=== PATIENT | male | born 1995 | race Caucasian/White ===

== ENCOUNTER 2022-02-16 06:11 | Emergency (ER) | payer MEDICAID ==
[2022-02-16] MEDS ORDERED: LIDOCAINE 1% INJ 10MG/ML (30 ML VIAL-PF) SQ ONE (06:15)
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
[2022-02-16 06:31] LABS: Glucose,Whole Blood 124 mg/dL (70-110)
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
[2022-02-16] MEDS ORDERED: LIDOCAINE/EPINEPHR/TETRACAINE 5 ML BOTTLE TOPICAL ONE (06:47)
[2022-02-16] MEDS ORDERED: TOPICAL SKIN ADHESIVE 1 EACH AMP TOPICAL ONE (07:31)
[2022-02-16] MEDS ORDERED: BACITRACIN OINT 1 EACH PACKET TOPICAL ONE (07:59)
[2022-02-16 08:20] VITALS: BP 147/81; PULSE 82; RESP 18; TEMP 98.6
== END 2022-02-16 08:20 | disposition home or self-care (01) ==
LOC: EC 06:11
DX: S01.81XA Laceration without foreign body of other part of head, initial encounter (principal); S91.311A Laceration without foreign body, right foot, initial encounter; Y04.8XXA Assault by other bodily force, initial encounter
CPT/HCPCS: 36415; 73610; 73630; 99285; 12015; 12001; J2001